=== PATIENT | male | born 1955 | race Caucasian/White ===

== ENCOUNTER 2016-05-12 11:58 | Outpatient (CLI) | payer BC ==
--- NOTE | 2016-05-12 22:54 | ULT ---
TESTICULAR ULTRASOUND 05/12/2016 TECHNIQUE: Ultrasonography of the scrotum was performed. FINDINGS: The right testicle measures 3.9 x 2.5 x 3.1 cm and the left measures 4.1 x 2 x 2.9 cm. Both appear normal and both have good blood flow. There is no sign of mass in either. Each epididymis was normal in size with the head on the right being 1.1 cm wide and on the left 1.2 cm. There may be a small epididymal cyst in the left epididymis. There is a small amount of free f luid noted around each testicle, a little more around the left than the right. There is no sign of a varicocele. IMPRESSION: No acute testicular abnormality. Other findings as listed above. POS: HOME
== END 2016-05-12 11:59 | disposition home or self-care (01) ==
LOC: BURULT 11:58
PROVIDERS: ATTEND Family Medicine
DX: N50.82 Scrotal pain (principal)
CPT/HCPCS: 76870

== ENCOUNTER 2016-05-27 08:13 | Outpatient (CLI) | payer BC ==
[2016-05-27 09:10] LABS: ALT (SGPT) 44 U/L (0-55); AST (SGOT) 35 U/L (5-34); Alkaline Phosphatase 57 U/L (40-150); Anion Gap 13 mmol/L (10-20); BUN (Urea Nitrogen) 32 mg/dL (8.4-25.7); Bilirubin, Total 0.6 mg/dL (0.2-1.2); Calc. Creatinine Clearance 0 mL/min (70-130); Calcium 9.6 mg/dL (7.8-10.44); Carbon Dioxide 26 mmol/L (23-31); Chloride 107 mmol/L (98-107); Estimated GFR-MDRD Greater than 90; Globulin 2.4 g/dL (2.4-3.5); LDL Cholesterol, Calculated 58 mg/dL; Protein, Total 6.5 g/dL (5.8-8.1)
[2016-05-27 09:12] LABS: Hemoglobin A1c 7.4 % (4.0-6.0)
[2016-05-27 09:42] LABS: #Basophils 0.1 thou/uL (0.0-0.2); #Eosinphils 0.1 thou/uL (0.0-0.7); #Lymphocytes 3.1 thou/uL (1.20-3.40); #Neutrophils 4.8 thou/uL (1.40-6.50); %Basophils 1.3 % (0.0-1.0); %Eosinophils 0.8 % (0.0-10.0); %Monocytes 11.1 % (0.0-10.0); Hematocrit 51.2 % (42.0-52.0); Mean Platelet Volume 7.8 fL (7.4-10.4); White Blood Cell (WBC) Count 9.1 thou/uL (4.8-10.8)
[2016-05-27 17:53] LABS: Free T3 2.34 pg/mL (1.71-3.71)
[2016-05-27 18:01] LABS: Microalbumin Urine Less than 1.0 mg/dL (0.5-50.0)
[2016-05-27 19:20] LABS: Sex Hormone Binding Globulin 45.4 nmol/L (11-78)
== END 2016-05-27 08:14 | disposition home or self-care (01) ==
LOC: BURLAB 08:13
PROVIDERS: ATTEND Internal Medicine Endocrinology, Diabetes & Metabolism
DX: E78.2 Mixed hyperlipidemia (principal); E11.65 Type 2 diabetes mellitus with hyperglycemia; E03.9 Hypothyroidism, unspecified; E29.1 Testicular hypofunction
CPT/HCPCS: 36415; 80053; 80061; 82043; 82672; 83036; 84270; 84403; 84439; 84443; 84481; 85025

== ENCOUNTER 2017-06-29 10:16 | Outpatient (CLI) | payer BC ==
--- NOTE | 2017-06-29 19:44 | RAD ---
RIGHT HAND FOUR VIEWS: 06/29/17 There is a fracture of the distal fifth metacarpal with slight angulation of the metacarpal head. No other fractures were seen. The remainder of the fifth digit appeared intact. Degenerative changes are seen in many of the IP joints of the fingers. The carpal bones were unremarkable. IMPRESSION: Fracture of the distal fifth metacarpal. POS: HOME
== END 2017-06-29 10:17 | disposition home or self-care (01) ==
LOC: BURRAD 10:16
PROVIDERS: ATTEND Family Medicine
DX: S63.91XA Sprain of unspecified part of right wrist and hand, initial encounter (principal); S62.306A Unspecified fracture of fifth metacarpal bone, right hand, initial encounter for closed fracture

== ENCOUNTER 2017-12-09 17:42 | Emergency (ER) | payer BC | END 2017-12-09 18:20 | disposition home or self-care (01) | LOC: BURERS 17:42 | DX: R19.7 Diarrhea, unspecified (principal); I10 Essential (primary) hypertension; G40.909 Epilepsy, unspecified, not intractable, without status epilepticus; E11.9 Type 2 diabetes mellitus without complications; E03.9 Hypothyroidism, unspecified; E78.5 Hyperlipidemia, unspecified | CPT/HCPCS: 99283 ==

== ENCOUNTER 2018-09-16 08:16 | Outpatient (CLI) | payer BC ==
--- NOTE | 2018-09-16 15:11 | RAD ---
LEFT FOOT THREE VIEWS: 09/16/2018 FINDINGS: No fracture or acute bony change is seen. The 2nd and 3rd digits show no acute findings. The joints are unremarkable for age. A calcaneal spur is noted. IMPRESSION: No acute bony finding. POS: HOME
== END 2018-09-16 08:17 | disposition home or self-care (01) ==
LOC: BURRAD 08:16
PROVIDERS: ATTEND Nurse Practitioner Family
DX: M79.672 Pain in left foot (principal)

== ENCOUNTER 2019-02-20 07:32 | Emergency (ER) | payer BC ==
[2019-02-20 08:30] LABS: #Basophils 0.1 thou/uL (0.0-0.2); #Lymphocytes 2.1 thou/uL (1.20-3.40); #Monocytes 0.6 thou/uL (0.11-0.59); %Basophils 1.3 % (0.0-1.0); %Eosinophils 0.6 % (0.0-10.0); %Lymphocytes 26.5 % (21.0-51.0); %Monocytes 7.2 % (0.0-10.0); %Neutrophils 64.5 % (42.0-75.0); Hemoglobin 15.9 g/dL (14.0-18.0); Mean Corpuscular HGB CONC 32.4 g/dL (32.0-36.0); Mean Corpuscular Hemoglobin 29.2 pg (27.0-31.0); Mean Platelet Volume 7.9 fL (7.4-10.4); Platelet Count 152 thou/uL (130-400); RBC Distribution Width 12.9 % (11.5-14.5); Red Blood Cell (RBC) Count 5.44 mill/uL (4.70-6.10); White Blood Cell (WBC) Count 7.8 thou/uL (4.8-10.8)
[2019-02-20] MEDS ORDERED: Meclizine HCl 25 MG TAB ONE (08:31)
[2019-02-20 08:47] LABS: ALT (SGPT) 22 U/L (8-55); AST (SGOT) 17 U/L (5-34); Alkaline Phosphatase 56 U/L (40-110); Anion Gap 13 mmol/L (10-20); BUN (Urea Nitrogen) 21 mg/dL (8.4-25.7); Bilirubin, Total 0.4 mg/dL (0.2-1.2); Calc. Creatinine Clearance 0 mL/min (70-130); Calcium 10.1 mg/dL (7.8-10.44); Carbon Dioxide 27 mmol/L (23-31); Chloride 103 mmol/L (98-107); Estimated GFR-MDRD Greater than 90; Globulin 2.7 g/dL (2.4-3.5); Glucose 139 mg/dL (80-115); Potassium 5.3 mmol/L (3.5-5.1); Protein, Total 6.7 g/dL (5.8-8.1); Sodium 138 mmol/L (136-145)
== END 2019-02-20 09:43 | disposition home or self-care (01) ==
LOC: BURERS 07:32
DX: R42 Dizziness and giddiness (principal); G40.909 Epilepsy, unspecified, not intractable, without status epilepticus; E11.9 Type 2 diabetes mellitus without complications; E03.9 Hypothyroidism, unspecified; I10 Essential (primary) hypertension; E78.5 Hyperlipidemia, unspecified; Z79.899 Other long term (current) drug therapy; Z79.4 Long term (current) use of insulin
CPT/HCPCS: 80053; 84484; 85025; 99284; J8597

== ENCOUNTER 2019-10-25 10:21 | Outpatient (CLI) | payer MEDICARE, BC ==
--- NOTE | 2019-10-25 23:02 | RAD ---
RIGHT FOOT THREE VIEWS: 10/25/19 Comparison is made with the left foot films. No fracture or area of bony destruction was seen. As with the other foot, there is progressive osteop orosis as one goes towards the toes. No focal bony lesion was appreciated. IMPRESSION: No acute finding. POS: HOME
--- NOTE | 2019-10-25 23:02 | RAD ---
No dictation POS: HOME
--- NOTE | 2019-10-27 07:50 | RAD ---
LEFT FOOT 3 VIEWS: DATE: 10/25/2019. NOTE: This is a redictation of this study as the initial one did not transfer appropriately. FINDINGS: Comparison with the 09/16/2018 study showed no adverse interval change. No fracture or area of bony de struction was present. There is some osteoporosis present, which becomes worse as one moved towards the toes. IMPRESSION: No acute bony findings. POS: HOME
== END 2019-10-25 10:22 | disposition home or self-care (01) ==
LOC: BURRAD 10:21
PROVIDERS: ATTEND Family Medicine
DX: S90.31XA Contusion of right foot, initial encounter (principal); M79.672 Pain in left foot

== ENCOUNTER 2020-09-30 15:21 | Outpatient (CLI) | payer MEDICARE, BC | END 2020-09-30 15:22 | disposition home or self-care (01) | LOC: BURRAD 15:21 | PROVIDERS: ATTEND Family Medicine | DX: B34.9 Viral infection, unspecified (principal); R91.8 Other nonspecific abnormal finding of lung field | CPT/HCPCS: 71046 ==

== ENCOUNTER 2024-01-31 08:33 | Emergency (ER) | payer MEDICARE ==
[2024-01-31] MEDS ORDERED: Morphine 4 MG/ML VIAL ONE (09:25)
[2024-01-31 09:28] LABS: #Basophils 0.2 thou/uL (0.0-0.2); #Eosinophils 0.2 thou/uL (0.0-0.7); #Lymphocytes 2.6 thou/uL (1.20-3.40); %Basophils 1.6 % (0.0-1.0); %Eosinophils 1.6 % (0.0-10.0); %Lymphocytes 18.6 % (21.0-51.0); %Neutrophils 64.2 % (42.0-75.0); Hemoglobin 9.9 g/dL (14.0-18.0); Mean Corpuscular Hemoglobin 27.3 pg (27.0-31.0); Mean Corpuscular Volume 88.2 fl (78.0-98.0); Mean Platelet Volume 6.1 fL (7.4-10.4); Platelet Count 362 10x3/uL (130-400); RBC Distribution Width 12.1 % (11.5-14.5); Red Blood Cell (RBC) Count 3.62 mill/uL (4.70-6.10)
[2024-01-31 09:33] LABS: Bilirubin Negative (Negative); Blood, Urine Negative (Negative); Clarity Clear (Clear); Glucose, Urine (Dipstick) >=1000 mg/dL (Negative); Ketone, Urine Negative (Negative); Leukocyte Negative (Negative); Nitrite Negative (Negative); Protein, Urine (Dipstick) Negative (Neg-Trace); Specific Gravity, Urine 1.015 (1.005-1.030); Urobilinogen 0.2 mg/dL (Less than 2)
[2024-01-31 09:51] LABS: Bacteria/HPF Rare-Few HPF (None Seen); CAUTI Indications for Culture Dysuria,urgency,freq; RBC/HPF None Seen HPF (0-3); Squamous Epithelial 0-3 HPF (0-3); WBC/HPF 0-3 HPF (0-3)
[2024-01-31 09:52] LABS: INR-International Normal Ratio 1.2; PTT 32.9 sec (22.9-36.1); Prothrombin Time 14.8 sec (12.0-14.7)
[2024-01-31 09:53] LABS: ALT (SGPT) 16 U/L (8-55); AST (SGOT) 13 U/L (5-34); Albumin 2.7 g/dL (3.4-4.8); Alkaline Phosphatase 78 U/L (40-110); Anion Gap 16 mmol/L (10-20); BUN (Urea Nitrogen) 45 mg/dL (8.4-25.7); Bilirubin, Total 0.3 mg/dL (0.2-1.2); Calc. Creatinine Clearance 0 mL/min (70-130); Calcium 9.7 mg/dL (7.8-10.44); Carbon Dioxide 24 mmol/L (23-31); Chloride 105 mmol/L (98-107); Estimated GFR 92; Globulin 4.2 g/dL (2.4-3.5); Glucose 168 mg/dL (80-115); Magnesium 1.7 mg/dL (1.6-2.6); Potassium 4.4 mmol/L (3.5-5.1); Protein, Total 6.9 g/dL (5.8-8.1); Urine Culture Reflex No No
[2024-01-31 09:56] LABS: Troponin I 0.019 ng/mL (< 0.028)
[2024-01-31 10:11] LABS: Sodium 141 mmol/L (136-145)
[2024-01-31] MEDS ORDERED: Iopamidol 370 76% 100 ML VIAL ONE (10:42)
[2024-01-31] MEDS ORDERED: Cyclobenzaprine 10 MG TAB ONE (16:03)
== END 2024-01-31 17:18 | disposition short-term general hospital (02) ==
LOC: BURERS 08:33
DX: D64.9 Anemia, unspecified (principal); R55 Syncope and collapse; M54.50 Low back pain, unspecified; G40.909 Epilepsy, unspecified, not intractable, without status epilepticus; E11.9 Type 2 diabetes mellitus without complications; E03.9 Hypothyroidism, unspecified; I10 Essential (primary) hypertension; E78.5 Hyperlipidemia, unspecified; Z55.6 Problems related to health literacy; Z79.4 Long term (current) use of insulin; Z79.899 Other long term (current) drug therapy
CPT/HCPCS: 70450; 71260; 72125; 74177; 80053; 81001; 83735; 83880; 84484; 85025; 85610; 85730; 93005; 96374; 99285; J2272; Q9967

== ENCOUNTER 2025-03-18 08:54 | Emergency (ER) | payer MEDICARE ==
[2025-03-18] MEDS ORDERED: Lidocaine 1% PF 5 ML VIAL ONE (09:25)
== END 2025-03-18 10:11 | disposition home or self-care (01) ==
LOC: BURERS 08:54
DX: S01.81XA Laceration without foreign body of other part of head, initial encounter (principal); S60.211A Contusion of right wrist, initial encounter; E03.9 Hypothyroidism, unspecified; E11.9 Type 2 diabetes mellitus without complications; I10 Essential (primary) hypertension; Z79.899 Other long term (current) drug therapy; Z79.890 Hormone replacement therapy; Z79.84 Long term (current) use of oral hypoglycemic drugs; W18.30XA Fall on same level, unspecified, initial encounter; Z23 Encounter for immunization
CPT/HCPCS: 90715